=== PATIENT | female | born 1980 | race Caucasian/White ===

== ENCOUNTER 2017-07-10 18:43 | Emergency (ER) | payer OTHER | END 2017-07-11 00:06 | disposition short-term general hospital (02) | LOC: ER 18:43 | DX: N93.9 Abnormal uterine and vaginal bleeding, unspecified (principal); D64.9 Anemia, unspecified; E87.6 Hypokalemia; F41.9 Anxiety disorder, unspecified; G43.909 Migraine, unspecified, not intractable, without status migrainosus | CPT/HCPCS: 36415; 96361; 96365; 96366; 96368; 96375 ==